=== PATIENT | male | born 1990 | race Caucasian/White ===

== ENCOUNTER 2018-08-19 13:53 | Emergency (ER) | payer OTHER ==
[2018-08-19 14:00] VITALS: BP 141/80
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
== END 2018-08-19 15:07 | disposition home or self-care (01) ==
DX: S02.32XA Fracture of orbital floor, left side, initial encounter for closed fracture (principal); Y04.8XXA Assault by other bodily force, initial encounter